=== PATIENT | male | born 2000 | race Caucasian/White ===

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

== ENCOUNTER 2025-04-11 11:44 | Emergency (ER) | payer BC, SELFPAY ==
--- NOTE | ~2025-04-11 | XR_ITS ---
Examination: XR chest 1V portable Clinical History: chest pain/Cough/ congestion x1 week Comparison: None Technique: Portable AP Findings: Heart size normal. Lungs clear. No acute bony abnormality. IMPRESSION: 1. No acute cardiopulmonary findings given portable technique. Reviewed, dictated and finalized at location R. SENIOR OFFICER
[2025-04-11 12:10] VITALS: BP 141/88; PULSE 83; RESP 17; TEMP 37.2; O2SAT 97
--- NOTE | 2025-04-11 12:49 | ED.URI ---
HPI - URI/Sore Throat General Chief Complaint: Upper Respiratory Infection Stated Complaint: cough, body pain Time Seen by Provider: 04/11/25 11:50 Source: patient Mode of arrival: ambulatory Limitations: no limitations History of Present Illness HPI Narrative: This is a 25-year-old male with no significant past medical history have some upper back muscle pain with deep inspiration has had a cough off and on for the last couple of weeks with clear sputum with no fever chills no chest pain no palpitations no sinus congestion or drainage no history of asthma. MD elicited complaint: cough Onset (ago): week(s) Consistency: intermittent Severity: mild Description of mucous: clear Able to tolerate fluids by mouth: Yes Exacerbating factors: nothing Relieving factors: nothing Related Data Allergies Allergy/AdvReac Type Severity Reaction Status Date / Time No Known Allergies Allergy Verified 09/28/20 08:22 Review of Systems Review of Systems: All systems reviewed & are unremarkable except as noted in HPI and below PMFSH Past Medical History Medical History (Updated 04/11/25 @ 12:57 by Amarjit Snell MD) No active medical problems Surgical History Surgical History No history of previous surgery Social History Social History Smoking status: Never smoker Alcohol intake: never Substance use: never Living arrangements: with friend(s) Occupation/Education: student Exam Const: General: healthy appearing and no acute distress Nutritional Appearance: well nourished Orientation/consciousness: patient oriented x3 Limitations: no limitations HENMT: Head: normal to inspection Neck: Neck: normal visual inspection, no lymphadenopathy and no meningeal signs Chest: Chest palpation & inspection: normal inspection of the chest Resp: Effort & Inspection: normal respiratory effort Auscultation: clear to auscultation bilaterally Cardio: Rate: regular rate Rhythm: regular rhythm GI: GI Palp: Yes Soft to palpation Auscultation: normal bowel sounds Course Course Emergency Course: Medical decision making narrative: Patient was evaluated via self in the emergency department. 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 X-ray of the chest performed reveals no acute cardiopulmonary abnormalities. Patient currently has no pain elicited. Does have a mild cough with no shortness of breath no audible wheezing. Repeat assessment: Patient doing well on repeat exam with no acute distress Symptoms are stable since arrival to the emergency department. Repeat vitals are stable Patient agrees with discussion after shared medical decision-making and agrees with discharge. All questions answered to the patient's satisfaction Follow-up with primary care in 3 to 5 days further evaluation. Vital Signs Vital signs: Vital Signs Temperature 37.2 C 04/11/25 12:10 Pulse Rate 83 04/11/25 12:10 Respiratory Rate 17 04/11/25 12:10 Blood Pressure 141/88 H 04/11/25 12:10 Pulse Oximetry 97 04/11/25 12:10 Oxygen Delivery Room Air 04/11/25 12:10 Temperature 37.2 C 04/11/25 12:10 Pulse Rate 71 04/11/25 13:25 Respiratory Rate 16 04/11/25 13:25 Blood Pressure 119/63 04/11/25 13:25 Pulse Oximetry 98 04/11/25 13:25 Oxygen Delivery Room Air 04/11/25 13:25 MDM Differential Diagnosis Differential Diagnosis: Muscle strain Lab Data Labs: Lab Results 04/11/25 Range/Units 12:31 Influenza A (RT-PCR) Negative (Negative) Influenza B (RT-PCR) Negative (Negative) RSV (RT-PCR) Negative (Negative) SARS-CoV-2 RNA (RT-PCR) Negative (Negative) Imaging Data Radiologist's impression: ITS Impressions Chest X-Ray 04/11/25 12:43 IMPRESSION: 1. No acute cardiopulmonary findings given portable technique. Critical Care Time Critical Care Time Critical Care Time: No Discharge Plan Discharge Clinical Impression: Muscle strain Cough Qualifiers: Cough type: acute Qualified Code(s): R05.1 - Acute cough Patient Disposition: Home Condition: Stable Instructions: Antibiotic Form, Muscle Strain (ED), Chronic Cough (ED) Additional Instructions: Advise patient to take medication as prescribed and follow-up with primary care physician within the next 3 to 5 days for further evaluation and treatment. Patient Language: Telugu Prescriptions: New cyclobenzaprine 5 mg tablet 5 mg PO TID Qty: 20 0RF benzonatate 100 mg capsule 100 mg PO TID Qty: 20 0RF naproxen 500 mg tablet 500 mg PO BID PRN (Reason: pain) Qty: 14 0RF No Action betamethasone dipropionate 0.05 % lotion 1 applic topical BID PRN (Reason: itching) Qty: 60 0RF hydroxyzine HCl 25 mg tablet 25 mg PO BID PRN (Reason: itching) Qty: 20 0RF Follow-up/Referrals: UNKNOWN,DOCTOR [Non-Staff] Time of Disposition: 13:13
[2025-04-11 13:11] LABS: Influenza A QL RT-PCR Negative (Negative); Influenza B QL RT-PCR Negative (Negative); RSV RNA, RT-PCR Negative (Negative); SARS-CoV-2 RNA PCR Negative (Negative)
--- OUTSIDE RECORDS SUMMARY | 2025-04-11 13:14 | XMS_ITS | Clinical Summary ---
Author Organization [facility] Address [address] [place] [address] Care Team Providers Care Florist Helper Name Role Phone Ulysses Souza MD Primary Care Provider [phone] Source Comments [facility],non-owned Affiliates and Associated Physician Practices is amultiple site organization consisting of ambulatory clinics and hospital sitesin [place], [place], [place] and [place]. This disclosure is being madepursuant to the Care Everywhere program and may not contain all information available regarding this patient. Last updated 18.[facility] Allergies No known active allergies Medications * Be aware that medications may not be up to date on this document. Alwaysverify current medications with the patient. No known medications Active Problems Problem Noted Date Diagnosed Date Pain in joint, shoulder region 09/08/2013 Acromioclavicular joint separation 09/05/2013 Resolved Problems Problem Noted Date Diagnosed Date Resolved Date Shoulder dislocation, left, initial encounter 09/06/19 14 09/05/2013 Social History Tobacco Use Types Packs/Day Years Used Date Smoking Tobacco: Never Assessed Sex and Gender Information Value Date Recorded Sex Assigned at Not on file Legal Sex Male 8:32 AM CDT Gender Identity Not on file Sexual Orientation Not on file Plan of Treatment Health Maintenance Due Date Last Done Comments HIV SCREENING 2016 HPV VACCINE (1 - Male 3-dose series) 2016 HEPATITIS C SCREENING 03/25/2019 DTAP/TDAP/TD VACCINES (1 - Tdap) 2020 HEPATITIS B VACCINE (1 of 3 - 19+ 3-dose series) 2020 DEPRESSION SCREENING 04/30/2024 COVID-19 VACCINE (1 - 2024-2 6 season) 2024 INFLUENZA VACCINE (#1) 2024 ZOSTER VACCINE (1 of 2) 2051 HIB VACCINE Aged Out No longer eligi ble based on patient's age to complete this topic MENINGOCOCCAL (Group B) VACC INE SHARED DECISION-MAKING Aged Out No longer eligibl e based on patient's age to complete this topic MENINGOCOCCAL GROUPS A/C/Y/W VACCINE Aged Out No longer eligible b ased on patient's age to complete this topic PNEUMOCOCCAL VACCINE Aged Out No long er eligible based on patient's age to complete this topic Insurance MEDICAID - [place] Care Teams Florist Helper Relationship Specialty Start Date End Date Ulysses Souza MD [address] [place] [id number] PCP - General Family Medicine 09/04/13
[2025-04-11 13:25] VITALS: BP 119/63; PULSE 71; RESP 16; O2SAT 98
== END 2025-04-11 13:25 | disposition home or self-care (01) ==
PROVIDERS: Emergency Provider Emergency Medicine; Referring Provider Internal Medicine
DX: S29.012A Strain of muscle and tendon of back wall of thorax, initial encounter (principal); R05.1 Acute cough; X58.XXXA Exposure to other specified factors, initial encounter; Z20.822 Contact with and (suspected) exposure to COVID-19
CPT/HCPCS: 71045; 87637; 99283